=== PATIENT | male | born 1965 | race Caucasian/White ===

== ENCOUNTER 2017-01-09 09:56 | Emergency (ER) | payer BC ==
--- NOTE | 2017-01-09 11:48 | UC ---
Throat Pain/Nasal José Miguel HPI - History of Current Complaint Chief Complaint: UCDentalProblem Stated Complaint: SWOLLEN JAW Time Seen by Provider: 01/09/17 11:36 Hx Obtained From: Patient Onset/Duration: Sudden Onset - Awoke with right jaw swelling below a tooth with some pain. Cough: None Associated Signs & Symptoms: Negative: Dysphagia, FB Sensation, Drooling - Allergies/Home Medications Allergies/Adverse Reactions: Allergies Allergy/AdvReac Type Severity Reaction Status Date / Time No Known Allergies Allergy Verified 01/09/17 11:31 Home Medications: Home Medications Ibuprofen TAB* [Advil TAB*] 400 mg PO Q8H PRN 01/09/17 [History Confirmed ] PMH/Surg Hx/FS Hx/Imm Hx Previously Healthy: Yes - Surgical History Surgical History: Yes Surgery Procedure, Year, and Place: Vocal cord surgery - Family History Known Family History: Negative: Cardiac Disease, Hypertension, Diabetes - Social History Occupation: Employed Full-time Lives: With Family Alcohol Use: Occasionally Substance Use Type: None Smoking Status (MU): Light Every Day Tobacco Smoker Have You Smoked in the Last Year: Yes - Immunization History Most Recent Tetanus Shot: 06/2014 Review of Systems ENT: Dental Pain All Other Systems Reviewed And Are Negative: Yes Physical Exam Triage Information Reviewed: Yes Appearance: Well-Appearing, Well-Nourished, Pain Distress - mild Vital Signs: Initial Vital Signs Temp 98.7 F 01/09/17 11:27 Pulse 77 01/09/17 11:27 Resp 16 01/09/17 11:27 BP 140/98 01/09/17 11:27 Pulse Ox 96 01/09/17 11:27 Vital Signs Reviewed: Yes Eyes: Positive: Conjunctiva Clear Dental: Positive: Abscess @ - #29 extending onto the jaw Neck exam: Normal Respiratory Exam: Normal Cardiovascular Exam: Normal Musculoskeletal Exam: Normal Musculoskeletal: Positive: Other: - mucus cyst right index DIP indenting nail. Neurological Exam: Normal Psychological Exam: Normal Skin Exam: Normal Throat Pain/Nasal Course/Dx - Differential Dx/Diagnosis Differential Diagnosis/HQI/PQRI: Peritonsillar Abscess, Pharyngitis Provider Diagnoses: Dental abscess. Mucus cyst righ index finger Discharge - Discharge Plan Condition: Stable Disposition: HOME Prescriptions: Amoxicillin/Clavulanate TAB* [Augmentin TAB 875*] 875 mg PO BID #20 tab Patient Education Materials: Dental Abscess (ED), Amoxicillin/Clavulanate Potassium (By mouth) Additional Instructions: Use imodium with the augmentin if you get diarrhea from the augmentin.
[2017-01-09 13:08] VITALS: BP 148/88
== END 2017-01-09 12:13 | disposition home or self-care (01) ==
LOC: UCCORT 09:56
DX: K04.7 Periapical abscess without sinus (principal); M67.441 Ganglion, right hand
CPT/HCPCS: 99212; G0463

== ENCOUNTER 2017-06-20 08:33 | Emergency (ER) | payer BC ==
[2017-06-20 09:01] VITALS: BP 143/89
--- NOTE | 2017-06-20 10:10 | UC ---
Dental HPI - HPI Summary HPI Summary: c/o dental pain - left lower side of face that is now swollen - has alot of teeth that need work - has bridge on top - started this morning. has taken ibuprofen this am. - History of Current Complaint Chief Complaint: UCDentalProblem Stated Complaint: SWOLLEN FACE-DENTAL Time Seen by Provider: 06/20/17 10:04 Hx Obtained From: Patient Onset/Duration: Sudden Onset Severity: Moderate Pain Scale Used: 0-10 Numeric - 5/10 Aggravating Factor(s): Chewing Related History: Swelling - Allergies/Home Medications Allergies/Adverse Reactions: Allergies Allergy/AdvReac Type Severity Reaction Status Date / Time No Known Allergies Allergy Verified 06/20/17 08:55 PMH/Surg Hx/FS Hx/Imm Hx Previously Healthy: Yes - Surgical History Surgical History: Yes Surgery Procedure, Year, and Place: Vocal cord surgery - Family History Known Family History: Negative: Cardiac Disease, Hypertension, Diabetes - Social History Alcohol Use: Occasionally Substance Use Type: None Smoking Status (MU): Heavy Every Day Tobacco Smoker Type: Cigarettes Amount Used/How Often: 1 pack daily Have You Smoked in the Last Year: Yes - Immunization History Most Recent Tetanus Shot: 06/2014 Review of Systems Constitutional: Negative Skin: Negative Eyes: Negative ENT: Dental Pain Respiratory: Negative Cardiovascular: Negative Gastrointestinal: Negative Genitourinary: Negative Motor: Negative Neurovascular: Negative Musculoskeletal: Negative Is Patient Immunocompromised?: No All Other Systems Reviewed And Are Negative: Yes Physical Exam Triage Information Reviewed: Yes Appearance: Well-Appearing, Pain Distress Vital Signs: Initial Vital Signs Temp 97.8 F 06/20/17 08:56 Pulse 62 06/20/17 08:56 Resp 18 06/20/17 08:56 BP 143/89 06/20/17 08:56 Vital Signs Reviewed: Yes Eye Exam: Normal Eyes: Positive: Conjunctiva Clear ENT: Positive: Dental tenderness - right side of face swollen and tender to touch Dental: Positive: Gross Decay/Caries @, Abscess @ Psychological: Positive: Normal Response To Family, Age Appropriate Behavior Skin Exam: Normal Dental Complaint Course/Dx - Course Course Of Treatment: take ibuprofen every 6 hours prn for pain. take abx as directed - full course. f/u - tomorrow with dentist for appt - Differential Dx/Diagnosis Provider Diagnoses: dental abscess/pain Discharge - Discharge Plan Condition: Stable Disposition: HOME Prescriptions: Penicillin VK 500 MG TAB(NF) [Penicillin VK 500 mg Tab] 500 mg PO QID 10 Days # 40 tab Patient Education Materials: Dental Abscess (ED) Referrals: GOPI Peña [Primary Care Provider] -
== END 2017-06-20 10:19 | disposition home or self-care (01) ==
LOC: UCCORT 08:33
DX: K04.7 Periapical abscess without sinus (principal); K08.89 Other specified disorders of teeth and supporting structures; F17.210 Nicotine dependence, cigarettes, uncomplicated
CPT/HCPCS: 99212; G0463